=== PATIENT | female | born 1960 | race Hispanic/Latino ===

== ENCOUNTER 2024-07-02 19:05 | Emergency (ER) | payer OTHER ==
[~2024-07-02] VITALS: Ht 160 cm; Wt 63.5 kg
[2024-07-02 19:46] VITALS: TEMP 99.1
[2024-07-02 20:37] LABS: BASOPHILS % 0.6 % (0.0-1.0); EOSINOPHILS % 0.9 % (0.0-6.0); HEMATOCRIT 28.5 % (34.2-44.1); LYMPHOCYTES # (AUTO) 1.1 (1.0-3.2); LYMPHOCYTES % 24.2 % (18.0-39.1); MEAN CORPUSCULAR HEMOGLOBIN 30.1 pg (28-32); MEAN CORPUSCULAR HGB CONC 31.6 g/dL (31-35); MEAN CORPUSCULAR VOLUME 95.3 fL (81-99); MONOCYTES # (AUTO) 0.3 (0.2-0.8); MONOCYTES % 7.1 % (4.4-11.3); NEUTROPHILS # (AUTO) 3.1 (2.1-6.9); PLATELET COUNT 79 x10e3/uL (140-360); RED BLOOD COUNT 2.99 x10e6/uL (3.6-5.1); RED CELL DISTRIBUTION WIDTH 13.3 % (11.7-14.4); WHITE BLOOD COUNT 4.66 x10e3/uL (4.8-10.8)
[2024-07-02] MEDS: ONDANSETRON HCL INJ 2MG/ML 2ML 2 MG/ML VIAL IV STA ×2 (20:37→20:38)
[2024-07-02] MEDS: Morphine 4mg INJECTION 4 MG/ML INJ IV STA (20:38)
[2024-07-02] MEDS: FAMOTIDINE 20 MG/2 ML VIAL IV STA (20:38)
[2024-07-02] MEDS: SODIUM CHLORIDE 0.9% 1000ML 1,000 ML IV STA (20:39)
[2024-07-02 20:40] LABS: CLARITY,URINE HAZY (CLEAR); COLOR,URINE YELLOW (YELLOW); NITRITE,URINE NEGATIVE (NEGATIVE); PH,URINE 7 (5 - 7); PROTEIN,URINE DIPSTICK 1+ (NEGATIVE)
[2024-07-02 20:41] LABS: BILIRUBIN,URINE NEGATIVE (NEGATIVE); GLUCOSE, URINE NEGATIVE (NEGATIVE); KETONES,URINE NEGATIVE (NEGATIVE); URINE UROBILINOGEN 0.2 mg/dL (0.2 - 1)
[2024-07-02 20:42] LABS: LEUKOCYTE ESTERASE ,URINE SMALL (NEGATIVE)
[2024-07-02 20:43] LABS: BACTERIA,URINE MANY /HPF; EPITHELIAL CELLS,URINE MANY /LPF; RBC,URINE 0-5 /HPF (0-5)
[2024-07-02 20:55] LABS: ALBUMIN 3.5 g/dL (3.5-5.0); ALBUMIN/GLOBULIN RATIO 1.1 (0.8-2.0); ANION GAP 14.9 mmol/L (8-16); BILIRUBIN,TOTAL 0.3 mg/dL (0.2-1.2); CALCIUM 9.2 mg/dL (8.4-10.2); CREATININE, SERUM 1.3 mg/dL (0.57-1.11); POTASSIUM 3.9 mmol/L (3.5-5.1); TOTAL PROTEIN 6.7 g/dL (6.5-8.1)
[2024-07-02 21:01] LABS: TROPONIN I 0.006 ng/mL (0-0.300)
[2024-07-02] MEDS ORDERED: IOPAMIDOL 370 MG/ML 100 ML INFUS..BTL INJ ONE (21:38)
[2024-07-02 22:09] VITALS: PULSE 74; RESP 18
[2024-07-02] MEDS ORDERED: ONDANSETRON ODT4 MG PO (22:16)
[2024-07-02] MEDS ORDERED: PROTONIX20 MG PO (22:16)
[2024-07-02 22:37] VITALS: TEMP 98.7; O2SAT 98
== END 2024-07-02 22:30 | disposition home or self-care (01) ==
LOC: ER 19:10
DX: R50.9 Fever, unspecified (principal); N28.9 Disorder of kidney and ureter, unspecified; R10.13 Epigastric pain; N28.1 Cyst of kidney, acquired; K76.0 Fatty (change of) liver, not elsewhere classified
CPT/HCPCS: 36415; 74177; 80053; 81001; 82550; 83690; 84484; 85025; 93005; 99284; J2270; J2405; J7030; Q9967

== ENCOUNTER 2025-01-04 15:01 | Emergency (ER) | payer OTHER ==
[~2025-01-04] VITALS: Ht 149.9 cm; Wt 55.8 kg
[~2025-01-04 15:01] MED LIST: ONDANSETRON ODT4 MG PO; PROTONIX20 MG PO
[2025-01-04 15:10] VITALS: TEMP 98.1
[2025-01-04] MEDS: Morphine 4mg INJECTION 4 MG/ML INJ IV ONE ×2 (16:05→18:19)
[2025-01-04] MEDS: ONDANSETRON HCL INJ 2MG/ML 2ML 2 MG/ML VIAL IV STA (16:05)
[2025-01-04] MEDS: FAMOTIDINE 20 MG/2 ML VIAL IV STA (16:05)
[2025-01-04] MEDS: LACTATED RINGER'S 1,000 ML INJ ONE (16:06)
[2025-01-04 17:24] VITALS: PULSE 59; RESP 16
[2025-01-04] MEDS ORDERED: IOPAMIDOL 370 MG/ML 100 ML INFUS..BTL INJ ONE (18:01)
[2025-01-04] MEDS ORDERED: METRONIDAZOLE500 MG PO (18:05)
[2025-01-04] MEDS ORDERED: CIPRO500 MG PO (18:05)
[2025-01-04] MEDS: CIPROFLOXACIN 400 MG/D5W 200ML 200 ML IV SCH (18:17)
[2025-01-04] MEDS: METRONIDAZOLE 500MG/NS 100ML 100 ML IV ONE (18:18)
[2025-01-04 18:59] VITALS: BP 114/54; PULSE 68; RESP 16; O2SAT 97
== END 2025-01-04 19:00 | disposition home or self-care (01) ==
LOC: FSED 15:20
DX: R10.30 Lower abdominal pain, unspecified (principal); K52.9 Noninfective gastroenteritis and colitis, unspecified; I10 Essential (primary) hypertension; M41.9 Scoliosis, unspecified; Z93.6 Other artificial openings of urinary tract status; Z86.73 Personal history of transient ischemic attack (TIA), and cerebral infarction without residual deficits; Z86.12 Personal history of poliomyelitis
CPT/HCPCS: 36415; 74177; 83690; 99284; J2270; J2405; Q9967